=== PATIENT | male | born 1990 | race Caucasian/White ===

== ENCOUNTER 2022-05-23 10:08 | Emergency (ER) | payer SELFPAY ==
[2022-05-23 10:20] VITALS: BP 141/95; PULSE 108; RESP 20; TEMP 36.8; O2SAT 97; BMI 26.6
--- NOTE | 2022-05-23 10:28 | EXP.UTC ---
Discharge Plan Disposition Patient Disposition: Home, Self-Care Condition: Good Prescriptions Prescriptions: New methylprednisolone 4 mg Tablets,Dose Pack 4 mg PO DIRECTED Qty: 21 0RF azithromycin [Zithromax] 250 mg tablet 250 mg PO UD DOSE PK Qty: 6 0RF Rx Instructions: Take two (2) tablets today, then one (1) tablet days #2 thru #5 [id number] [Bromfed DM] 2-30-10 mg/5 mL Syrup 5 ml PO Q6H PRN (Reason: Cough) Qty: 240 0RF Referrals Follow up/Referrals: Provider,Referral, MD [Primary Care Provider] - See instructions Activity Restrictions/Add. Instructions Additional Instructions/Restrictions: Drink plenty of fluids. Take tylenol or ibuprofen for pain or fever. Take the medications as directed. Follow up with your regular doctor. GO TO THE ER FOR ANY WORSENING SYMPTOMS Clinical Impressions Clinical Impression: Otitis media, Sinusitis Instructions Patient Instructions: Middle Ear Infection, DI for Sinusitis Discharge ED Provider: Obed Hernandez [facility] General Stated complaint: ear pain and pressure Time Seen by Provider: 05/23/22 10:28 History of Present Illness Provider Complaint: He states that for the past 5 days he has had worsening bilateral ear pain, sinus congestion, and a sore throat. Related Data Previous Rx's Medication Instructions Recorded azithromycin 250 mg tablet 250 mg PO UD DOSE PK #6 tabs 05/23/22 (Zithromax) [id number]-oqnjawtbnonnobo-DC 5 ml PO Q6H PRN Cough #240 mL 05/23/22 2 mg-30 mg-10 mg/5 mL oral syrup (Bromfed DM) methylprednisolone 4 mg tablets in 4 mg PO DIRECTED #21 tabs 05/23/22 a dose pack Allergies Allergy/AdvReac Type Severity Reaction Status Date / Time Penicillins Allergy Verified 05/23/22 10:39 [facility] Disclaimer: The information contained in this section may have been updated after the patient was seen, as this information can be updated by other users. Medical History Asthma Social History Smoking Status: Unknown if ever smoked alcohol intake: current current occupational status: employed Travel in the last 8 weeks: None ROS Obtained: Yes All systems reviewed & no additional complaints except as documented Constitutional Constitutional: Reports chills and Reports fever(s) Eyes Eyes: Denies eye discharge ENT Ears, Nose, Mouth, and Throat: Reports as per HPI Cardiovascular Cardiovascular: Denies chest pain Respiratory Respiratory: Denies chest congestion and Reports cough Gastrointestinal Gastrointestingal: Reports nausea; Denies abdominal pain, constipation, cramping, diarrhea or vomiting Musculoskeletal Musculoskeletal: Denies arthralgias Integumentary/Breasts Skin/Breast: Denies rash Neurologic Neurologic: Denies paresthesias Physical Exam General General appearance: alert and in no apparent distress Head Head exam: atraumatic, normocephalic and normal inspection Eye Eye exam: Present normal appearance; Absent PERRL or EOMI ENT ENT exam: Present mucous membranes moist and normal external ear exam Expanded ENT Exam TM/Canal exam: Bilateral TM: erythema, bulging and effusion Nose exam: Absent sinus tenderness Nasal speculum exam: Bilateral: normal Mouth exam: Present normal external inspection and other; Absent drooling Teeth exam: Present normal inspection Throat exam: Present tonsillar erythema and tonsillomegaly Neck Neck exam: Present normal inspection, full ROM and trachea midline; Absent tenderness, meningismus or lymphadenopathy Chest Chest inspection: Present normal inspection and symmetric chest wall rise; Absent tenderness Respiratory Respiratory exam: Present normal lung sounds bilaterally; Absent respiratory distress, wheezes or stridor Cardiovascular Cardiovascular exam: Present regular rate, normal rhythm and normal heart sounds; Absent ta
[2022-05-23 11:26] VITALS: BP 141/95; PULSE 108; RESP 20; TEMP 36.8; O2SAT 97
== END 2022-05-23 11:28 | disposition home or self-care (01) ==
PROVIDERS: Emergency Provider Nurse Practitioner Family
DX: H66.90 Otitis media, unspecified, unspecified ear (principal); J32.9 Chronic sinusitis, unspecified
CPT/HCPCS: 99212; 99213; G0463

== ENCOUNTER → 2022-09-15 23:04 | Outpatient (CLI) | payer BC, SELFPAY ==
[2022-09-15 19:17] LABS: Basophils % 0.4 % (0.1-2.0); Eosinophils # 0.3 K/mm3 (0.0-0.4); Eosinophils % 2.8 % (0.1-12.0); Hematocrit 50.7 % (42.0-52.0); Hemoglobin 16.6 g/dL (14.1-18.0); Mean Corpuscular HGB Conc 32.7 g/dL (31.8-35.4); Mean Corpuscular Hemoglobin 30.4 pg (27.0-31.2); Mean Corpuscular Volume 92.9 fl (80-94); Mean Platelet Volume 10.1 fl (7.4-10.4); Monocytes # 0.4 K/mm3 (0.1-1.0); Monocytes % 4.6 % (1.7-9.3); Neutrophils # 6.1 K/mm3 (1.8-7.8); Neutrophils % 69.2 % (37.0-80.0); Platelet Count 293 K/mm3 (142-424); Red Blood Count 5.46 M/mm3 (4.60-6.20); Red Cell Distribution Width 12.8 % (11.5-17.5); White Blood Count 8.8 K/mm3 (4.8-10.8)
[2022-09-15 19:49] LABS: Alanine Aminotransferase 93 U/L (12-78); Albumin Level 4.5 g/dl (3.5-5.0); Albumin/Globulin Ratio 1.5 (1.1-1.8); Alkaline Phosphatase 100 U/L (38-126); Anion Gap 17.6 mEq/L (5-15); Aspartate Amino Transferase 115 U/L (17-59); Bilirubin,Total 0.7 mg/dl (0.2-1.3); Blood Urea Nitrogen 9 mg/dl (9-20); Calcium 9.5 mg/dl (8.4-10.2); Carbon Dioxide 22 mmol/L (22.0-30.0); Chloride 104 mmol/L (98-107); Chol/HDL Ratio 4.8 (1-3.5); Cholesterol 271 mg/dl (140-200); Estimated Glomerular Filt Rate 86 ml/min (>60); GFR (African American) 104 ML/MIN (>60); Globulin 3.1 g/dL (1.3-3.2); Glucose 99 mg/dl (74-100); HDL Cholesterol 56 mg/dl (40-60); Potassium 4.6 mmoL/L (3.5-5.1); Sodium 139 mmol/L (136-145); Total Protein,Serum 7.6 g/dl (6.3-8.2); Triglycerides 304 mg/dl (30-150); VLDL Cholesterol 61 mg/dL (0-40)
[2022-09-15 20:00] LABS: Direct LDL Cholesterol 150.63 mg/dL (100-129)
[2022-09-15 20:06] LABS: 25-OH Vitamin D, Total 13.3 ng/mL (30-100)
[2022-09-15 20:20] LABS: Thyroid Stimulating Hormone 0.79 uIU/mL (0.465-4.68)
== END ==
PROVIDERS: PCP Student in an Organized Health Care Education/Training Program; Visit Provider Student in an Organized Health Care Education/Training Program
DX: R22.0 Localized swelling, mass and lump, head (principal); Z13.29 Encounter for screening for other suspected endocrine disorder; Z13.220 Encounter for screening for lipoid disorders; E55.9 Vitamin D deficiency, unspecified
CPT/HCPCS: 80053; 80061; 82306; 84443; 85025

== ENCOUNTER → 2022-09-17 13:52 | Outpatient (CLI) | payer BC, SELFPAY ==
--- NOTE | 2022-09-17 13:52 | US_ITS ---
FINAL REPORT TECHNIQUE: Real-time grayscale and color ultrasound of the soft tissues of the neck was performed. CLINICAL HISTORY: R sided submandibular mass, swelling COMPARISON: None FINDINGS: Ultrasound images of the area of concern in the right submandibular region were obtained. Color Doppler images were submitted. The parotid and submandibular glands are unremarkable. The palpable abnormality in the right neck correlates with a heterogeneous solid appearing process measuring 3.9 cm in greatest dimension adjacent to the right submandibular gland. This could represent lymph node or exophytic mass. Small lymph nodes seen in the left submandibular region. IMPRESSION: Heterogeneous solid mass lateral to the right submandibular gland accounting for palpable abnormality. Recommend CT or MRI with contrast for further assessment. Reviewed, Interpreted and Dictated by Clinton Mota MD Transcribed by Akanksha Mojica Authenticated and [facility]
== END ==
LOC: RAD 13:52
PROVIDERS: Visit Provider Student in an Organized Health Care Education/Training Program
DX: R22.1 Localized swelling, mass and lump, neck (principal)
CPT/HCPCS: 76536

== ENCOUNTER 2022-09-21 12:14 | Emergency (ER) | payer BC, SELFPAY ==
[2022-09-21 12:15] VITALS: BP 134/93; PULSE 93; RESP 16; TEMP 36.8; O2SAT 97; BMI 29.2
[2022-09-21 12:36] VITALS: BP 128/87; PULSE 101; O2SAT 97
[2022-09-21 12:46] VITALS: BMI 29.2
--- NOTE | 2022-09-21 12:54 | CT_ITS ---
FINAL REPORT TECHNIQUE: Thin section axial CT images were obtained through the neck after intravenous contrast administration. Coronal and sagittal reformats were also obtained. This study was performed with techniques to keep radiation doses as low as reasonably achievable (ALARA). Individualized dose reduction techniques using automated exposure control or adjustment of mA and/or kV according to the patient''s size were employed. CLINICAL HISTORY: jaw and facial swelling, r/o abscess// had previous US on 09/17/22 on area as well FINDINGS: The nasopharynx, oropharynx, hypopharynx and larynx are unremarkable. The inferior aspect of the right masseter muscle is enlarged with adjacent stranding, and the right platysma muscle is also slightly thickened. This may represent inflammatory change or soft tissue injury. No focal underlying mass is identified. The thyroid gland is unremarkable. The visualized sinuses are clear. There is no acute osseous abnormality. IMPRESSION: Enlargement of the inferior aspect of the right masseter muscle with adjacent stranding, and thickening of the adjacent right platysma muscle that may represent inflammatory change or soft tissue injury. No focal underlying mass is identified. Reviewed, Interpreted and Dictated by Bj Carmichael III, MD Transcribed by Yasmin Sanchez Authenticated and [facility]
[2022-09-21 13:02] LABS: Basophils # 0.1 K/mm3 (0-0.2); Eosinophils # 0.3 K/mm3 (0.0-0.4); Eosinophils % 3.3 % (0.1-12.0); Hematocrit 49.6 % (42.0-52.0); Hemoglobin 16.2 g/dL (14.1-18.0); Lymphocytes # 1.9 K/mm3 (0.7-4.5); Lymphocytes % 22.3 % (10-50); Mean Corpuscular HGB Conc 32.7 g/dL (31.8-35.4); Mean Corpuscular Hemoglobin 30.3 pg (27.0-31.2); Mean Corpuscular Volume 92.8 fl (80-94); Mean Platelet Volume 9.4 fl (7.4-10.4); Monocytes # 0.4 K/mm3 (0.1-1.0); Monocytes % 4.6 % (1.7-9.3); Neutrophils # 5.7 K/mm3 (1.8-7.8); Neutrophils % 68.8 % (37.0-80.0); Platelet Count 262 K/mm3 (142-424); Red Blood Count 5.34 M/mm3 (4.60-6.20); Red Cell Distribution Width 12.8 % (11.5-17.5); White Blood Count 8.3 K/mm3 (4.8-10.8)
--- NOTE | 2022-09-21 13:02 | HMH.EDGENADL ---
Discharge Plan Disposition Patient Disposition: Home, Self-Care Condition: Fair Prescriptions Prescriptions: New prednisone 50 mg tablet 50 mg PO DAILY 7 Days Qty: 7 0RF No Action clindamycin HCl 300 mg capsule 300 mg PO Q8H 10 Days Qty: 30 0RF cholecalciferol (vitamin D3) 25 mcg (1,000 unit) capsule 25 mcg PO DAILY Qty: 30 2RF methylprednisolone 4 mg tablets,dose pack See Rx Instructions PO PER PKG DIR Qty: 21 0RF Rx Instructions: PO PER PKG DIR Referrals Follow up/Referrals: Provider,Referral, [Primary Care Provider] - See instructions Clinical Impressions Clinical Impression: Facial edema Instructions Patient Instructions: Edema Discharge ED Provider: Dandre Marquez General Adult HPI General Chief complaint: Skin/Abscess/Foreign Body Stated complaint: facial swelling Time Seen by Provider: 09/21/22 13:47 History of Present Illness HPI narrative: This is a 32-year-old white male who said last week he has swelling in the right side of his neck which he says is gone totally away but over the past couple days he is now swelling the right side of his face and difficulty opening closing his jaw. Patient denies any fevers chills any problems swallowing any shortness of breath. Related Data Previous Rx's Medication Instructions Recorded clindamycin HCl 300 mg capsule 300 mg PO Q8H 10 days #30 caps 09/15/22 cholecalciferol (vitamin D3) 25 25 mcg PO DAILY #30 caps 09/17/22 mcg (1,000 unit) capsule methylprednisolone 4 mg tablets in See Rx Instructions PO PER PKG DIR 09/21/22 a dose pack #21 tabs prednisone 50 mg tablet 50 mg PO DAILY 7 days #7 tabs 09/21/22 Allergies Allergy/AdvReac Type Severity Reaction Status Date / Time Penicillins Allergy Verified 09/15/22 13:09 [facility] Disclaimer: The information contained in this section may have been updated after the patient was seen, as this information can be updated by other users. Medical History Asthma Social History Smoking Status: Never smoker alcohol intake: current current occupational status: employed Travel in the last 8 weeks: None ROS Obtained: Yes All systems reviewed & no additional complaints except as documented Skin no rash or lesions HEENT see HPI Pulmonary no cough or shortness of breath Cardiovascular no chest pain pressure heaviness GI no abdominal pain nausea or vomiting no dysuria pyuria hematuria Musculoskeletal no neck or back pain Endocrine no polydipsia polyuria or polyphasia Psych no SI or HI The rest of the systems were reviewed and found to be negative Physical Exam Narrative Physical exam: Skin: Warm and dry HEENT: Normocephalic atraumatic extract muscles are intact pupils are equal and reactive to light there is edema and tenderness to palpation over the right maxillary region Neck: Supple nontender Lungs: Clear to auscultation Heart: Regular rate and rhythm Abdomen: NABS soft nontender Extremities: No clubbing cyanosis or edema Neurologic: No unilateral weakness or numbness Lymphatic: No cervical or inguinal adenopathy Musculoskeletal: No tenderness of the dorsal or lumbar spine Psych: No SI or HI General General appearance: alert Respiratory Respiratory exam: Present normal lung sounds bilaterally Cardiovascular Cardiovascular exam: Present regular rate Neurological Exam Neurological exam: Present alert Medical Decision Making Fabián Inquiry Pt receiving controlled substance: No Vital Signs: 09/21/22 12:15 Temperature 98.2 F Temperature Source Oral Pulse Rate [Right Radial] 93 H Respiratory Rate 16 Blood Pressure [Right Arm] 134/93 H Blood Pressure Mean [Right Arm] 106 Blood Pressure Source [Right Arm] Automatic Cuff Blood Pressure Position [Right Arm] Sitting 02 Sat by Pulse Oximetry 97 Oxygen Delivery Method Room Air Lab Data Lab Results
[2022-09-21 13:03] LABS: Chloride 101 mmol/L (98-107); Sodium 138 mmol/L (136-145)
[2022-09-21 13:06] LABS: Alanine Aminotransferase 123 U/L (12-78); Aspartate Amino Transferase 149 U/L (17-59); Blood Urea Nitrogen 13 mg/dl (9-20); Carbon Dioxide 21 mmol/L (22.0-30.0); Creatinine Clearance Estimated 133 mL/min (50-200); Estimated Glomerular Filt Rate 86 ml/min (>60); GFR (African American) 104 ML/MIN (>60); Lactic Acid 1.8 mmol/L (0.7-2.1)
[2022-09-21 13:07] LABS: Albumin Level 4.7 g/dl (3.5-5.0); Albumin/Globulin Ratio 1.3 (1.1-1.8); Alkaline Phosphatase 94 U/L (38-126); Bilirubin,Total 0.9 mg/dl (0.2-1.3); Calcium 9.5 mg/dl (8.4-10.2); Globulin 3.7 g/dL (1.3-3.2); Glucose 109 mg/dl (74-100); Total Protein,Serum 8.4 g/dl (6.3-8.2)
[2022-09-21 14:35] VITALS: BP 137/93; PULSE 83; O2SAT 98
--- NOTE | 2022-09-21 14:35 | PC.NURSE ---
contacted rad to check on status of CT result-states scan is in locked status. updated pt on POC, pt states no needs at this time
[2022-09-21 15:00] VITALS: BP 144/82; PULSE 81; O2SAT 96
[2022-09-21 15:30] VITALS: BP 126/79; PULSE 81; O2SAT 96
[2022-09-21 15:55] VITALS: BP 141/71; PULSE 79; RESP 16; TEMP 36.7; O2SAT 98
== END 2022-09-21 16:04 | disposition home or self-care (01) ==
PROVIDERS: Emergency Provider Emergency Medicine
DX: R22.0 Localized swelling, mass and lump, head (principal); R22.1 Localized swelling, mass and lump, neck; J45.909 Unspecified asthma, uncomplicated
CPT/HCPCS: 70491; 80053; 83605; 85025; 87040; 99284; 99285; Q9967

== ENCOUNTER 2023-05-23 13:48 | Emergency (ER) | payer BC, SELFPAY ==
[2023-05-23 13:50] VITALS: BP 118/82; PULSE 98; RESP 18; TEMP 36.6; O2SAT 99; BMI 26.6
[2023-05-23 14:08] VITALS: BMI 26.6
--- NOTE | 2023-05-23 14:10 | XR_ITS ---
PROCEDURE INFORMATION: Exam: XR Left Knee Exam date and time: 05/23/2023 2:14 PM Age: 33 years old Clinical indication: Pain; Knee; Left; Additional info: Fall TECHNIQUE: Imaging protocol: Radiologic exam of the left knee. Views: 3 views. COMPARISON: No relevant prior studies available. FINDINGS: Bones/joints: No acute fracture or dislocation. Soft tissues: Normal. IMPRESSION: No acute fracture or dislocation.
--- NOTE | 2023-05-23 14:10 | XR_ITS ---
PROCEDURE INFORMATION: Exam: XR Left Hip Exam date and time: 05/23/2023 2:10 PM Age: 33 years old Clinical indication: Hip pain; Left hip; Additional info: Fall TECHNIQUE: Imaging protocol: Radiologic exam of the left hip. Views: 2 or 3 views hip with pelvis when performed. COMPARISON: No relevant prior studies available. FINDINGS: Bones/joints: No acute fracture or dislocation. Os acetabulum. Soft tissues: Unremarkable. IMPRESSION: No acute fracture or dislocation.
--- NOTE | 2023-05-23 14:18 | PC.NURSE ---
Pt gone to RAD via wheelchair
--- NOTE | 2023-05-23 14:35 | PC.NURSE ---
Pt back in room from RAD
--- NOTE | 2023-05-23 14:39 | PC.NURSE ---
DR JIANG AT BEDSIDE
--- NOTE | 2023-05-23 14:46 | HMH.EDGENADL ---
Discharge Plan Disposition Patient Disposition: Home, Self-Care Prescriptions Prescriptions: New cyclobenzaprine 10 mg tablet 10 mg PO TID PRN (Reason: muscle spasm) 5 Days Qty: 15 0RF No Action clindamycin HCl 300 mg capsule 300 mg PO Q8H 10 Days Qty: 30 0RF cholecalciferol (vitamin D3) 25 mcg (1,000 unit) capsule 25 mcg PO DAILY Qty: 30 2RF methylprednisolone 4 mg tablets,dose pack See Rx Instructions PO PER PKG DIR Qty: 21 0RF Rx Instructions: PO PER PKG DIR prednisone 50 mg tablet 50 mg PO DAILY 7 Days Qty: 7 0RF Referrals Follow up/Referrals: Scottie Christian DO [Staff Physician] - See instructions Provider,Referral, [Primary Care Provider] - See instructions Activity Restrictions/Add. Instructions Additional Instructions/Restrictions: Follow-up with Dr. Christian to be evaluated for possible outpatient MRIs of your knee and hip as your x-rays show no acute osseous abnormality. Your pain is out of proportion to what I expect in somebody your age is possible you have some soft tissue structure abnormalities that could be causing your symptoms. In the meantime I would recommend you follow-up with [facility] get fitted for orthotics and have them help you select shoes that are more appropriate for your job which caused you to do stand extended period of time. Lastly I would advise that you rest for several days. Stop taking NSAIDs as discussed due to side effects you are having and take Tylenol and muscle laxer that are prescribed to you. Clinical Impressions Clinical Impression: Chronic knee pain, Chronic hip pain Discharge ED Provider: Sara Cordova General Adult HPI General Chief complaint: PAIN Stated complaint: Hip/knee pain Time Seen by Provider: 05/23/23 14:39 Mode of Arrival: Ambulatory Source of Information: Patient Limitations: No Limitations Description of Symptoms (Recalled from ER Triage Doc. by RN): Patient states he has had left hip knee pain since Mar that has progressively gotten worse over the last few months. No known injury. States he stood up today and his leg gave out and fell so decided he wanted to get it evaluated. History of Present Illness HPI narrative: Patient is a 33-year-old male with a history of chronic left knee and hip pain. 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 Does not wear supportive shoes. States has had chronic hip and knee pain for the last several months. Recently stopped taking NSAIDs as he had a little bit of blood in his stool which has since resolved. He states that his pain worsened since that time but has been taking large amounts of NSAIDs. No melena just had some blood-tinged stool hematochezia. States that he has had no fever or chills just pain with movement in his left hip and left knee. Related Data Previous Rx's Medication Instructions Recorded clindamycin HCl 300 mg capsule 300 mg PO Q8H 10 days #30 caps 09/15/22 cholecalciferol (vitamin D3) 25 25 mcg PO DAILY #30 caps 09/17/22 mcg (1,000 unit) capsule methylprednisolone 4 mg tablets in See Rx Instructions PO PER PKG DIR 09/21/22 a dose pack #21 tabs prednisone 50 mg tablet 50 mg PO DAILY 7 days #7 tabs 09/21/22 cyclobenzaprine 10 mg tablet 10 mg PO TID PRN muscle spasm 5 05/23/23 days #15 tabs Allergies Allergy/AdvReac Type Severity Reaction Status Date / Time Penicillins Allergy Verified 09/15/22 13:09 [facility] Disclaimer: The information contained in this section may have been updated after the patient was seen, as this information can be updated by other users. Medical History Asthma Social History Smoking Status: Never smoker alcohol intake: current current occupational status: employed Travel in the last 8 weeks: None ROS Obtained: Yes All systems reviewed & no additional complaints except as documented Physical Exam General General appearance: alert Respiratory Respiratory exam: Present normal lung sounds bilaterally Cardiovascular Cardiovascular exam: Present regular rate Extremities Exam Extremities exam: Present other (Full range of motion no redness or swelling normal neurovascular exam) Neurological Exam Neurological exam: Present alert and oriented X3 Medical Decision Making Fabián Inquiry Pt receiving controlled substance: No Vital Signs: 05/23/23 13:50 Temperature 97.9 F Temperature Source Oral Pulse Rate [Right] 98 H Respiratory Rate 18 Blood Pressure [Right Arm] 118/82 Blood Pressure Mean [Right Arm] 94 Blood Pressure Source [Right Arm] Automatic Cuff 02 Sat by Pulse Oximetry 99 Oxygen Delivery Method Room Air Orders (Tests/Meds): ORDERS Category Date Time Status Knee XR left 3 views [XR knee LT 3V] Stat Exams 05/23/23 14:10 Taken XR hip LT 2-3V w/pelvis Stat Exams 05/23/23 14:10 Taken Medical Decision Narrative: 33-year-old with chronic pain really from no significant trauma. He is not febrile not concerned about a septic joint his exam is not consistent with that. He walks 20,000 steps at night which is a significant amount of axial load. I strongly suggest that he follow-up and get orthotics and wear better shoes which he agreed to. He had limited hematochezia possibly secondary to chronic NSAID use and I told him to stop that he will be taking Tylenol and muscle laxer. X-rays were performed which I personally interpreted shows no acute osseous abnormality no fractures or dislocations. I advise given the chronicity of this and is his age being out of proportion to what I would expect with this young man that he follow-up with orthopedic surgeon for further discussion for possible MRIs physical therapy or other modalities of treatment. He was discharged in stable condition. Critical Care Critical Care Time Critical Care Time: No
[2023-05-23 14:51] VITALS: BP 118/88; PULSE 94; RESP 18; TEMP 36.6; O2SAT 99
--- NOTE | 2023-05-23 16:12 | PC.NURSE ---
Phone call made to patient to inform that rx was cancelled at [facility] due to being closed, and resent to [facility] in [place] per patient request
== END 2023-05-23 14:52 | disposition home or self-care (01) ==
PROVIDERS: Emergency Provider Student in an Organized Health Care Education/Training Program
DX: M25.552 Pain in left hip (principal); M25.562 Pain in left knee; J45.909 Unspecified asthma, uncomplicated
CPT/HCPCS: 73502; 73562; 99284

== ENCOUNTER 2023-07-02 14:04 | Outpatient (CLI) | payer BC, SELFPAY ==
[2023-07-02 12:18] LABS: Alanine Aminotransferase 44 U/L (12-78); Albumin Level 4.5 g/dl (3.5-5.0); Alkaline Phosphatase 98 U/L (38-126); Aspartate Amino Transferase 46 U/L (17-59); Bilirubin,Direct 0.2 mg/dl (0.0-0.4); Bilirubin,Indirect 0.7 mg/dL (0.0-0.9); Bilirubin,Total 0.9 mg/dl (0.2-1.3); Bilirubin,Unconjugated 0.6 mg/dL (0.0-1.1); Total Protein,Serum 7.7 g/dl (6.3-8.2); Uric Acid 8.7 mg/dl (3.5-8.5)
[2023-07-03 18:10] LABS: HBsAg Screen Negative (Negative); HCV Ab Non Reactive (Non Reactive); Hep A Ab, IGM Negative (Negative); Hep B Core Ab, IgM Negative (Negative)
== END 2023-07-02 23:59 ==
LOC: LAB.DROPOF 14:05
PROVIDERS: PCP Family Medicine; Visit Provider Family Medicine
DX: R53.83 Other fatigue (principal)
CPT/HCPCS: 80074; 80076; 84550

== ENCOUNTER 2023-10-27 15:00 | Outpatient (RCR) | payer BC, SELFPAY | END 2023-10-27 16:15 | disposition home or self-care (01) | LOC: PT 15:00 | PROVIDERS: Visit Provider Nurse Practitioner Family | DX: M87.052 Idiopathic aseptic necrosis of left femur (principal); Z96.642 Presence of left artificial hip joint | CPT/HCPCS: 97110; 97112; 97163; 97164; 97530 ==